=== PATIENT | male | born 1955 | race Caucasian/White ===

== ENCOUNTER → 2016-03-24 | Outpatient (CLI) | payer OTHER ==
[~2016-03-24] MED LIST: INFL10VL IV
[2016-03-24 11:42] LABS: BASO # 0.1 K/mm3 (0.0-0.2); BASO % 1.4 % (0.0-1.0); EOS # 0.4 K/mm3 (0.0-0.50); EOS % 6.3 % (0.0-3.0); LARGE UNSTAINED CELL # 0.2 K/mm3 (0.0-0.4); LARGE UNSTAINED CELL % 3.4 % (0.0-4.0); LYMPH # 2.5 K/mm3 (1.5-4.5); LYMPH % 39.1 % (24.0-44.0); MEAN CORPUSCULAR HEMOGLOBIN 32.2 pg (27.0-33.0); MEAN CORPUSCULAR HGB CONC 33.1 g/dl (32.0-36.5); MEAN CORPUSCULAR VOLUME 97.2 fl (80.0-96.0); MONO # 0.4 K/mm3 (0.0-0.8); MONO % 6.9 % (0.0-5.0); NEUTROPHILS # 2.5 K/mm3 (1.8-7.7); NEUTROPHILS % 42.8 % (36.0-66.0); PLATELET COUNT, AUTOMATED 177 k/mm3 (150-450); RED CELL DISTRIBUTION WIDTH 13.4 % (11.5-14.5); WHITE BLOOD COUNT 5.8 K/mm3 (4.0-10.0)
[2016-03-24 11:50] LABS: ALT/SGPT 35 U/L (12-78); CREATININE FOR GFR 1.01 MG/DL (0.70-1.30); GLOMERULAR FILTRATION RATE > 60.0 (>49)
== END ==
LOC: M WUC 09:15
PROVIDERS: ATTEND Internal Medicine Rheumatology
DX: M05.79 Rheumatoid arthritis with rheumatoid factor of multiple sites without organ or systems involvement (principal); E55.9 Vitamin D deficiency, unspecified; Z79.899 Other long term (current) drug therapy

== ENCOUNTER 2016-11-28 07:42 | Outpatient (CLI) | payer OTHER ==
[~2016-11-28] VITALS: Ht 182.9 cm; Wt 98.9 kg
[~2016-11-28 07:42] MED LIST changes: +ASPI81TA85 PO; +LOSA50TA20 PO
[2016-11-28] MEDS ORDERED: NS 1,000 ML IV ONE (08:00)
[2016-11-28] MEDS ORDERED: PROPOFOL 200 MG/20 ML VIAL As Ordered ONE (09:11)
--- NOTE | 2016-11-28 09:33 | ROOR ---
Patient Name: Javad Kelsey Procedure Date: 11/28/2016 9:10 AM Date of : 1955 Age: 61 Room: [facility] Gender: Male Note Status: Finalized Procedure: Total Colonoscopy to Cecum Indications: High risk colon cancer surveillance: Personal history of colonic polyps Providers: Edson Macias MD Referring MD: BOBBY CAT MD Requesting Provider: Medicines: Monitored Anesthesia Care Complications: No immediate complications. Procedure: Pre-Anesthesia Assessment: - The heart rate, respiratory rate, oxygen saturations, blood pressure, adequacy of pulmonary ventilation, and response to care were monitored throughout the procedure. The Colonoscope was introduced through the anus and advanced to the cecum, identified by appendiceal orifice and ileocecal valve. The colonoscopy was performed without difficulty. The patient tolerated the procedure well. The quality of the bowel preparation was excellent. Findings: The perianal and digital rectal examinations were normal. Non-bleeding internal hemorrhoids were found during retroflexion. The hemorrhoids were small and Grade I (internal hemorrhoids that do not prolapse). Multiple small and large-mouthed diverticula were found in the recto-sigmoid colon, sigmoid colon and descending colon. The exam was otherwise without abnormality on direct and retroflexion views. Impression: - Non-bleeding internal hemorrhoids. - Diverticulosis in the recto-sigmoid colon, in the sigmoid colon and in the descending colon. - The examination was otherwise normal on direct and retroflexion views. - No specimens collected. - The exam was otherwise normal to the cecum. Recommendation: - Patient has a contact number available for emergencies. The signs and symptoms of potential delayed complications were discussed with the patient. Return to normal activities tomorrow. Written discharge instructions were provided to the patient. - High fiber diet. - Discharge patient to home. - Continue present medications. - Repeat colonoscopy in 5 years for surveillance. - Return to referring physician. - The findings and recommendations were discussed with the patient's family. Edson Macias MD Edson Macias MD 11/28/2016 9:33:09 AM This report has been signed electronically. Number of Addenda: 0 Note Initiated On: 11/28/2016 9:10 AM Estimated Blood Loss: Estimated blood loss: none.
[2016-11-28 09:55] VITALS: BP 129/78
== END 2016-11-28 10:09 | disposition home or self-care (01) ==
LOC: M OPP 07:42
PROVIDERS: ATTEND Internal Medicine Gastroenterology
DX: Z12.11 Encounter for screening for malignant neoplasm of colon (principal); D37.4 Neoplasm of uncertain behavior of colon; Z86.010 Personal history of colon polyps; K64.0 First degree hemorrhoids; K57.30 Diverticulosis of large intestine without perforation or abscess without bleeding; I10 Essential (primary) hypertension; M06.9 Rheumatoid arthritis, unspecified; Z79.82 Long term (current) use of aspirin; Z79.899 Other long term (current) drug therapy; Z80.1 Family history of malignant neoplasm of trachea, bronchus and lung

== ENCOUNTER → 2016-12-08 | Outpatient (REF) | payer OTHER ==
[2016-12-08 13:58] LABS: CRYSTALS, BODY FLUID NONE SEEN (NONE SEEN)
[2016-12-08 15:22] LABS: SYNOVIAL FLUID COLOR PALE YELLOW (YELLOW)
[2016-12-08 16:11] LABS: RBC ADVIA BF 0; RBC CALC. BF < 10000 (< 10mm3 cells/uL); WBC ADVIA BF 0.1; WBC CALC. BF 100 cells/uL (0-20)
[2016-12-10 09:19] LABS: BF DIFF IF INDICATED? YES (NO)
[2016-12-10 09:25] LABS: CC BF DIFF EXAM CYTOCENTRIFUGE
== END ==
LOC: M LAB REF 13:19
PROVIDERS: ATTEND Internal Medicine Rheumatology
DX: M17.11 Unilateral primary osteoarthritis, right knee (principal)

== ENCOUNTER 2020-03-26 09:33 | Day surgery (SDC) | payer OTHER ==
[~2020-03-26] VITALS: Ht 180.3 cm; Wt 98.6 kg
[~2020-03-26 09:33] MED LIST changes: -ASPI81TA85 PO; +ASPI81TA86 PO; -LOSA50TA20 PO; +LOSA50TA88 PO
[2020-03-26] MEDS ORDERED: TURM500C PO (10:00)
[2020-03-26] MEDS ORDERED: CVS1CAP5 PO (10:00)
[2020-03-26] MEDS ORDERED: DURA1CAP PO (10:00)
[2020-03-26] MEDS ORDERED: UBIQ200C PO (10:00)
[2020-03-26] MEDS ORDERED: VITA500C24 PO (10:00)
--- NOTE | 2020-03-26 10:38 | REP ---
INDICATION: trauma, right 4th finger COMPARISON: None. TECHNIQUE: AP, lateral, bilateral oblique views right 4 digit. FINDINGS: There is partial amputation/laceration involving the distal aspect of the right 4th digit with transverse fracture/displacement through the distal phalanx. Presumed old corticated fracture fragment at the 3rd digit DIP joint. IMPRESSION: Acute partial amputation and underlying distal phalangeal fracture of the 4th digit. <Electronically signed by Joao Landeros > 03/26/20 [id number]
[2020-03-26] MEDS ORDERED: AMPICILLIN SOD/SULBACTAM SOD 3 GM in D5W MINI-BAG PLUS 100 ML IV ONE (10:45)
[2020-03-26] MEDS ORDERED: MORPHINE 4 MG/ML 1ML VIAL/SYRINGE (J2270) IV ONE (10:45)
[2020-03-26] MEDS ORDERED: BOOSTRIX/ADACEL VACCINE (DIPHTH/PERTUSS/ACELL/TETANUS) 0.5ML SYR IM ONE (10:45)
[2020-03-26 11:07] LABS: BASO % 0.4 % (0.0-1.0); EOS # 0.3 10^3/uL (0.0-0.5); HEMATOCRIT 49.1 % (42.0-52.0); HEMOGLOBIN 15.8 g/dl (13.5-17.5); LYMPH # 2.2 10^3/uL (1.5-5.0); LYMPH % 20.5 % (24.0-44.0); MEAN CORPUSCULAR HEMOGLOBIN 31.7 pg (27.0-33.0); MEAN CORPUSCULAR HGB CONC 32.2 g/dl (32.0-36.5); MEAN CORPUSCULAR VOLUME 98.4 fl (80.0-96.0); MONO # 0.7 10^3/uL (0.0-0.8); MONO % 6.6 % (0.0-5.0); NEUTROPHILS # 7.5 10^3/uL (1.5-8.5); NEUTROPHILS % 69.2 % (36.0-66.0); PLATELET COUNT, AUTOMATED 218 10^3/uL (150-450); RED BLOOD COUNT 4.99 10^6/uL (4.30-6.10); WHITE BLOOD COUNT 10.8 10^3/uL (4.0-10.0)
[2020-03-26] MEDS ORDERED: VITA-158 PO (11:20)
[2020-03-26] MEDS ORDERED: IBUP200T45 PO (11:20)
[2020-03-26] MEDS ORDERED: D31000TA2 PO (11:20)
[2020-03-26 11:39] LABS: BLOOD UREA NITROGEN 30 MG/DL (7-18); CALCIUM LEVEL 9.6 MG/DL (8.8-10.2); CARBON DIOXIDE LEVEL 25 MEQ/L (21-32); CHLORIDE LEVEL 106 MEQ/L (98-107); GLOMERULAR FILTRATION RATE > 60.0 (>49); GLUCOSE, FASTING 127 MG/DL (70-100); POTASSIUM SERUM 4.7 MEQ/L (3.5-5.1); SODIUM LEVEL 138 MEQ/L (136-145)
[2020-03-26] MEDS ORDERED: NS 1,000 ML IV ONE (12:15)
[2020-03-26] MEDS ORDERED: NS 1,000 ML IV SCH (13:35)
[2020-03-26] MEDS ORDERED: BISACODYL 10 MG SUPP PR PRN (13:45)
[2020-03-26] MEDS ORDERED: NORCO, ANEXSIA 5/325MG TABLET (HYDROcodone/ACETAMINOPHEN) PO PRN (13:45)
[2020-03-26] MEDS ORDERED: ACETAMINOPHEN TAB 650MG DOSE (2X325MG) PO PRN (13:45)
[2020-03-26] MEDS ORDERED: MORPHINE 2 MG/ML 1ML VIAL (J2270) IV PRN (13:45)
[2020-03-26] MEDS ORDERED: ONDANSETRON 4MG/2ML VIAL IV PRN ×2 (13:45→18:00)
[2020-03-26] MEDS ORDERED: MOM 30ML SUSPENSION UDC PO PRN (13:45)
[2020-03-26] MEDS ORDERED: ceFAZolin SOD 2 GM in D5W MINI-BAG PLUS 50 ML IV SCH (14:00)
[2020-03-26] MEDS ORDERED: KETOROLAC 60MG 2ML VIAL As Ordered ONE (16:10)
[2020-03-26] MEDS ORDERED: dexameTHASONE 4 MG/ML 1ML VIAL (J1100 PER 1MG) As Ordered ONE (16:10)
[2020-03-26] MEDS ORDERED: propofoL 200 MG/20 ML VIAL As Ordered ONE (16:10)
[2020-03-26] MEDS ORDERED: LIDOCAINE 2% 100MG/5ML SDV (FOR ANES.) As Ordered ONE (16:10)
[2020-03-26] MEDS ORDERED: MIDAZOLAM INJ 2MG/2ML VIAL (J2250 PER 1MG) As Ordered ONE (16:10)
[2020-03-26] MEDS ORDERED: ONDANSETRON 4MG/2ML VIAL As Ordered ONE (16:10)
[2020-03-26] MEDS ORDERED: fentaNYL 100 MCG/2 ML INJECTION (J3010) As Ordered ONE (16:10)
[2020-03-26] MEDS ORDERED: LIDOCAINE 5% OINT 30 GM As Ordered ONE (16:17)
[2020-03-26] MEDS ORDERED: ceFAZolin 2 GM/D5W 50 ML IV BAG (J0690 PER 500MG) As Ordered ONE (16:30)
[2020-03-26] MEDS ORDERED: PERCOCET 5MG/325MG TAB PO PRN ×2 (18:00→18:15)
[2020-03-26] MEDS ORDERED: LR 1,000 ML IV SCH (18:00)
[2020-03-26] MEDS: fentaNYL 100 MCG/2 ML INJECTION (J3010) IV PRN ×2 (18:10→18:18)
--- NOTE | 2020-03-26 18:30 | RO ---
OPERATIVE NOTE DATE OF OPERATION: 03/26/2020 PREOPERATIVE DIAGNOSIS: Right ring finger open fracture and partial amputation. POSTOPERATIVE DIAGNOSIS: Right ring finger open fracture and partial amputation. PLANNED PROCEDURE: Right ring finger revision amputation; irrigation and debridement of the distal interphalangeal (DIP) joint. PROCEDURE(S) PERFORMED: Right ring finger revision amputation; irrigation and debridement of the distal interphalangeal (DIP) joint. SURGEON: Vipin Guerrero MD AIRPLANE FUELER: Flora Sandoval M.D. ANESTHESIA: General anesthetic with LMA. OPERATIVE PREAMBLE: This 64-year-old man got his finger caught in an inversion table. He had an open fracture and partial near complete amputation through the middle aspect of the distal phalanx right ring finger. We discussed the pros, cons, risks, and benefits of going ahead with irrigation and debridement and revision amputation with shortening of the digit. He wished to go ahead, we marked the right upper extremity, and proceeded to surgery. OPERATIVE REPORT: The patient was brought to the operating theater. He was administered 2 grams of IV Ancef. The limb was prepped and draped in the usual sterile fashion with iodine-based prep solution. The patient was given general anesthetic with an LMA. He was then placed supine on the operating room table. The bed was turned 90 degrees. A hand table was used to the patient's right side. Tourniquet was applied, but not inflated. Preoperative time-out was performed to confirm the site, patient, and the surgery. Began by completing the amputation. It was only being held on by the flexor tendon and the two vessels that I tied off with 3-0 Vicryl suture and cauterized the ends and cut those short, as well as pulling the flexor tendon slightly distally and cutting that as well. Performed irrigation and debridement with 3 liters of normal saline. I used a rongeur to shorten the proximal aspect of the distal phalanx. I took intraoperative radiographs to confirm proper debridement, avoiding the articular surface of the distal aspect of the middle phalanx. I then closed in layers using 3-0 Vicryl suture and 3-0 Ethilon simple interrupted sutures. The wound cleaned followed by the application of nonstick Telfa dressing and then over-wrapped with a 4 inch Star wrap sterilely. The patient was awakened from general anesthetic, transferred off the operating room table, and taken to the postanesthetic care unit in stable condition. All sponge counts, needle counts, and instrument counts were correct. Estimated blood loss 10 mL. PLAN: Patient is to be discharged home after meeting day surgery criteria. P.o. Keflex x2 days 500 mg p.o. four times daily has already been called in, as well as Percocet for postoperative pain control with appropriate counseling. I will see him in the clinic in two weeks time. Change his bandage every day and start immediate range of motion, but no heavy lifting or gripping.
--- NOTE | 2020-03-26 18:43 | CR ---
CONSULTATION DATE: 03/26/2020 REASON FOR CONSULTATION: Right ring finger distal phalanx open fracture, crush injury, and partial amputation. HISTORY OF PRESENT ILLNESS: This 64-year-old man was on an inversion table today. He got his finger caught in the mechanism and crushed it and resulted in a partial amputation through the mid aspect of his distal phalanx right ring finger. He is right hand dominant. No prior history of any other pain or problems with his right upper extremity. PAST MEDICAL HISTORY: 1. Rheumatoid arthritis. 2. Hypertension. MEDICATIONS: - Remicade - ibuprofen - losartan ALLERGIES: No known drug allergies. 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 He is a nonsmoker. PHYSICAL EXAMINATION: This is a well-appearing 64-year-old man. He has an open fracture just proximal to the nail bed transverse near complete amputation to the right ring finger. It is dysvascular. Proximal the vascularity is normal. Capillary refill under three seconds. There is normal sensation on both sides of the digit. There is obvious exposed bone and soft tissue. Otherwise, no other injuries. Vital signs are stable. IMAGING: Radiographs were reviewed of the hand. This shows a transverse comminuted open fracture of the distal phalanx through the mid aspect with obvious open injury of the right ring finger. No obvious other injuries. LABORATORY DATA: COVID negative. Blood work is benign. IMPRESSION/PLAN: This 64-year-old man has a partial amputation and open fracture through the mid aspect of the distal phalanx of the right ring finger. I discussed pros, cons, risks, and benefits of going ahead with surgical revision amputation with irrigation and debridement. Surgical risks include, but are not limited to infection, pain, stiffness, bleeding, neurovascular injury, damage to surrounding structures, numbness, weakness, instability of the finger, digit or joint, shortening of the digit, anesthetic complications, blood clots, , and other risks, as well as need for further surgery and bleeding problems, which would be a higher risk than normal given his Remicade and immunosuppressed status. He wished to go ahead and signed the consent form for surgery. A wet bandage was placed. He has gotten tetanus, as well as started on IV antibiotics by the QNP in the emergency department. I have let the OR know to book this as an emergency case open fracture and add it on for tonight. He signed the consent form for the surgery, as well as the possible need for blood products. I wrapped up his hand and he had no further questions. MACHELLE
[2020-03-26 18:50] VITALS: BP 152/83
--- NOTE | 2020-03-27 07:44 | REP ---
INDICATION: RIGHT RING FINGER AMPUTATION. COMPARISON: None. TECHNIQUE: Intraoperative fluoroscopic imaging using portable C-arm technique. FINDINGS: Single image demonstrates amputation of the distal phalanx at the DIP level of the right 4th digit. Total fluoroscopic time 13 seconds. IMPRESSION: Status post distal phalangeal amputation. <Electronically signed by Joao Landeros > 03/27/20 0741
== END 2020-03-26 19:14 | disposition home or self-care (01) ==
LOC: M ED 09:33 → EDBD 09:33 → M SDC 13:47
PROVIDERS: ATTEND Orthopaedic Surgery Sports Medicine
DX: S62.634B Displaced fracture of distal phalanx of right ring finger, initial encounter for open fracture (principal); I10 Essential (primary) hypertension; M06.9 Rheumatoid arthritis, unspecified; W23.0XXA Caught, crushed, jammed, or pinched between moving objects, initial encounter; Y92.9 Unspecified place or not applicable; Y93.9 Activity, unspecified; Y99.9 Unspecified external cause status
CPT/HCPCS: 11011; 26591; 73140; 76000; 80048; 85025; 88302; 88311; 90715; 96360; 96361; 96374; 99284; J0690; J1100; J1885; J2250; J2270; J2405; J3010; U0002

== ENCOUNTER 2022-07-13 10:50 | Day surgery (SDC) | payer MEDICARE, BC ==
[~2022-07-13] VITALS: Ht 180.3 cm; Wt 96.2 kg
[~2022-07-13 10:50] MED LIST changes: +CVS1CAP5 PO; +DURA1CAP PO; +IBUP-1022 PO; +IBUP200T45 PO; +LOSA50TA28 PO; -LOSA50TA88 PO; +NS 1,000 ML IV ONE; +TURM500C PO; +UBIQ200C PO; +VITA-158 PO; +VITA100093 PO; +VITA500C24 PO
[2022-07-13] MEDS ORDERED: propofoL 200 MG/20 ML VIAL As Ordered ONE (12:28)
[2022-07-13] MEDS ORDERED: LIDOCAINE 2% 100MG/5ML SDV (FOR ANES.) As Ordered ONE (12:28)
[2022-07-13 13:05] VITALS: BP 131/70
== END 2022-07-13 13:10 | disposition home or self-care (01) ==
LOC: M OPP 10:50
PROVIDERS: ATTEND Internal Medicine Gastroenterology
DX: Z12.11 Encounter for screening for malignant neoplasm of colon (principal); Z86.010 Personal history of colon polyps; K64.0 First degree hemorrhoids; K57.30 Diverticulosis of large intestine without perforation or abscess without bleeding; Z79.1 Long term (current) use of non-steroidal anti-inflammatories (NSAID); Z79.620 Long term (current) use of immunosuppressive biologic

== ENCOUNTER → 2023-10-06 | Outpatient (CLI) | payer MEDICARE, OTHER ==
[~2023-10-06] MED LIST changes: -NS 1,000 ML IV ONE
[2023-10-06 18:51] LABS: BASO # 0.1 10^3/uL (0.0-0.2); BASO % 0.5 % (0.0-1.0); EOS # 0.4 10^3/uL (0.0-0.5); EOS % 3.9 % (0.0-3.0); HEMATOCRIT 46.4 % (42.0-52.0); HEMOGLOBIN 15.6 g/dl (13.5-17.5); LYMPH # 4.5 10^3/uL (1.5-5.0); LYMPH % 44.6 % (24.0-44.0); MEAN CORPUSCULAR HEMOGLOBIN 33.4 pg (27.0-33.0); MEAN CORPUSCULAR HGB CONC 33.6 g/dl (32.0-36.5); MEAN CORPUSCULAR VOLUME 99.4 fl (80.0-96.0); MONO # 0.9 10^3/uL (0.0-0.8); MONO % 9.4 % (2.0-8.0); NEUTROPHILS # 4.2 10^3/uL (1.5-8.5); NEUTROPHILS % 41.4 % (36.0-66.0); PLATELET COUNT, AUTOMATED 206 10^3/uL (150-450); RED BLOOD COUNT 4.67 10^6/uL (4.30-6.10); WHITE BLOOD COUNT 10.1 10^3/uL (4.0-10.0)
[2023-10-06 18:54] LABS: C REACTIVE PROTEIN QUANTITATIV < 0.40 MG/DL (<1.0)
[2023-10-06 18:56] LABS: ALKALINE PHOSPHATASE 56 U/L (46-116); ALT/SGPT 36 U/L (7.0-40); AST/SGOT 21 U/L (<34); BILIRUBIN,TOTAL 1.3 MG/DL (0.3-1.2); BLOOD UREA NITROGEN 27 MG/DL (9-23); CALCIUM LEVEL 9.9 MG/DL (8.3-10.6); CARBON DIOXIDE LEVEL 26 MMOL/L (20-31); CHLORIDE LEVEL 109 MMOL/L (98-107); CHOLESTEROL LEVEL 232 MG/DL (<200); CHOLESTEROL RISK RATIO 2.79 (<5); CREATININE FOR GFR 0.98 MG/DL (0.70-1.30); GLOMERULAR FILTRATION RATE > 60.0 (>42); GLUCOSE, FASTING 95 MG/DL (74-106); POTASSIUM SERUM 4.3 MMOL/L (3.5-5.1); SODIUM LEVEL 142 MMOL/L (136-145); TOTAL PROTEIN 6.9 G/DL (5.7-8.2); TRIGLYCERIDES LEVEL 100 MG/DL (<150)
[2023-10-06 19:07] LABS: HEMOGLOBIN A1c 5.6 % (4.0-6.0)
[2023-10-07 12:01] LABS: ERYTHROCYTE SEDIMENTATION RATE 22 mm/hr (0-20)
== END ==
LOC: M PLALAB 15:21
PROVIDERS: ATTEND Family Medicine
DX: M06.9 Rheumatoid arthritis, unspecified (principal); Z13.6 Encounter for screening for cardiovascular disorders; Z79.899 Other long term (current) drug therapy

== ENCOUNTER → 2024-11-04 | Outpatient (CLI) | payer MEDICARE ==
[2024-11-04 14:30] LABS: ALT/SGPT 33.0 U/L (7.0-40); AST/SGOT 25.0 U/L (<34); CALCIUM LEVEL 9.4 MG/DL (8.3-10.6); CARBON DIOXIDE LEVEL 27.0 MMOL/L (20-31); CHLORIDE LEVEL 107.0 MMOL/L (98-107); CHOLESTEROL LEVEL 219.0 MG/DL (<200); CHOLESTEROL RISK RATIO 2.82 (<5); CREATININE FOR GFR 0.95 MG/DL (0.70-1.30); GLOMERULAR FILTRATION RATE 85.6 (>42); LDL CHOLESTEROL 127.6 MG/DL (<100); NON-HDL-C 141.6 MG/DL; POTASSIUM SERUM 4.9 MMOL/L (3.5-5.1); SODIUM LEVEL 143.0 MMOL/L (136-145); TRIGLYCERIDES LEVEL 70.0 MG/DL (<150)
[2024-11-04 15:27] LABS: ESTIMATED AVERAGE GLUCOSE 111.0 MG/DL (60-110)
== END ==
LOC: M PLALAB 10:08
PROVIDERS: ATTEND Family Medicine
DX: I10 Essential (primary) hypertension (principal)